=== PATIENT | female | born 1955 | race Caucasian/White ===

== ENCOUNTER 2024-12-22 06:27 | Day surgery (SDC) | payer MEDICARE, OTHER ==
[~2024-12-22] VITALS: Ht 157.5 cm; Wt 65.8 kg
[~2024-12-22 06:27] MED LIST: APIX5TAB PO; HYDR-4795 PO; METO-158 PO; SIMV20TA20 PO; TERI600I SC; ZOLP5TAB5 PO
[2024-12-22] MEDS: LIDOCAINE VISCOUS 2% 15ML UD PO ONE (08:29)
[2024-12-22] MEDS ORDERED: MIDAZOLAM HCL 2MG/2ML 2ml VIAL (1mg/ml) ONE (08:29)
[2024-12-22] MEDS: fentaNYL CITRATE 100 MCG/2 ML VL IV ONE (08:32)
[2024-12-22] MEDS: MIDAZOLAM HCL 5 MG/ML-1ML VIAL IV ONE (08:35)
[2024-12-22 08:41] VITALS: BP 127/67; PULSE 77; RESP 20; O2SAT 92
--- NOTE | 2024-12-22 08:44 | DVHOP2 ---
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 The patient was brought to the cardiac foundry laborer coreroom in n.p.o. state. the patient was given 15 ml of oral viscous lidocaine. the patient was placed in a left lateral decubitus position with bite block in mouth. NExt conscious sedation was administered per foundry laborer coreroom protocol with _2_ mg of versed and ___650 mcg of fentanyl. Next a STACI probe was advanced to the mid esophagus with ease and multiple planar images obtained. At the completion of the procedure , probe was removed and there were no immediate complications. FINDINGS: Left Ventricle: Normal LV size and function, LVEF estimated at 60% Right Ventricle: NOrmal RV size and function Left atrium: enlarged, smoke in [place] Right atrium: mild enlarged Left atrial appendage: no thrombus noted, Aortic valve: trileaflet valve, no severe or AI Mitral Valve: structurally normal, mild mitral regurg, no MS Tricuspid Valve: mild tricuspid regurgitaiton, no TS Pulmonic Valve: strucutrally normal, no severe PI or PS Interatrial septum: possible tiny pfo with minimal R to L shunt on bubble study Ascending aorta: no severe plaquing PLAN: dc doac cont surveillance of hx of AFL proceed to parotid surgery HEATHER DELGADO MD Dec 22, 2024 08:44
[2024-12-22 08:56] VITALS: BP 98/33; PULSE 75; RESP 19; O2SAT 93
[2024-12-22 09:11] VITALS: BP 97/26; PULSE 71; RESP 16; O2SAT 95
[2024-12-22 09:27] VITALS: BP 114/50; PULSE 63; RESP 18; O2SAT 95
[2024-12-22 09:41] VITALS: BP 122/57; PULSE 74; RESP 14; O2SAT 96
--- NOTE | 2024-12-23 07:40 | ECG ---
[facility] Test Date: 2024-12-22 Test Time: 07:21:35 Pat Name: EMILY SCHOFIELD Department: Room: Gender: F [employer]: TYREECLEMENCIA : 1955 Requested By: HEATHER DELGADO Order Number: [id number] Reading MD: Stefan Carroll Measurements Intervals [place] Rate: 68 P: 71 IN: 198 QRS: 3 QRSD: 84 T: 55 QT: 452 QTc: 480 Interpretive Statements Normal sinus rhythm Low voltage QRS Cannot rule out Anteroseptal infarct , age undetermined Electronically Signed On 12-25-2024 19:16:23 PDT by Stefan Carroll Please click the below link to view image of tracing.
== END 2024-12-22 09:56 | disposition home or self-care (01) ==
LOC: CATH 06:27
PROVIDERS: ATTEND Internal Medicine
DX: I48.92 Unspecified atrial flutter (principal); I08.1 Rheumatic disorders of both mitral and tricuspid valves; I21.9 Acute myocardial infarction, unspecified; E78.00 Pure hypercholesterolemia, unspecified; Z79.899 Other long term (current) drug therapy; Z90.710 Acquired absence of both cervix and uterus; Z90.49 Acquired absence of other specified parts of digestive tract; Z98.890 Other specified postprocedural states; Z83.3 Family history of diabetes mellitus
CPT/HCPCS: 93005; 93312; 93325; J2250; J3010; 99152